=== PATIENT | female | born 1960 | race Caucasian/White ===

== ENCOUNTER 2016-11-06 12:58 | Emergency (ER) | payer MEDICAID ==
--- NOTE | 2016-11-06 13:34 | ED Physician Documentation ---
PD HPI CHEST PAIN - Stated complaint Stated Complaint: CHEST PAIN - Chief complaint Chief Complaint: Cardiac - History obtained from History obtained from: Patient - History of Present Illness Timing - onset: How many weeks ago (1) Timing - onset during: Light activity Timing - duration: Weeks (has had it for a week, regardless of eating, position , breathing, walking/activity.) Quality: Aching, Indigestion (says it feels like burning) Location: Substernal Radiation: No: Left upper extremity, Right upper extremity Improved by: No: Rest, Oxygen, Antacids Worsened by: Eating. No: Exertion, Movement, Palpation Associated symptoms: Shortness of air, Nausea. No: Vomiting, Feeling faint / dizzy, General Weakness, Palpitations Similar symptoms before: Has not had sx before Recently seen: Not recently seen Review of Systems Constitutional: denies: Fever, Chills Nose: denies: Rhinorrhea / runny nose, Congestion Throat: denies: Sore throat Cardiac: reports: Chest pain / pressure. denies: Palpitations, Pedal edema, Calf pain Respiratory: denies: Dyspnea, Cough, Wheezing GI: denies: Nausea, Vomiting, Diarrhea PD PAST MEDICAL HISTORY - Past Medical History Cardiovascular: AL (with left CAD stnent) Respiratory: None Neuro: None Endocrine/Autoimmune: None - Present Medications Home Medications: Ambulatory Orders Medication Instructions Recorded Confirmed Clopidogrel [Plavix] 75 mg PO DAILY 11/06/16 11/06/16 Famotidine [Pepcid] 20 mg PO BID #60 tablet 11/06/16 Glipizide 10 mg PO DAILY #30 tablet 11/06/16 Losartan [Cozaar] 50 mg PO DAILY 11/06/16 11/06/16 Metoprolol Tartrate 50 mg PO BID 11/06/16 11/06/16 Omeprazole [PriLOSEC] 20 mg PO DAILY 11/06/16 11/06/16 Paroxetine HCl 40 mg PO DAILY 11/06/16 11/06/16 Sitagliptin Phosphate [Januvia] 50 mg PO BID 11/06/16 11/06/16 Sucralfate 1 gm PO QID #40 tablet 11/06/16 Tramadol HCl 50 mg PO Q6H PRN #20 tablet 11/06/16 - Allergies Allergies/Adverse Reactions: Allergies Allergy/AdvReac Type Severity Reaction Status Date / Time No Known Drug Allergies Allergy Verified 11/06/16 14:15 PD ED PE NORMAL - Vitals Vital signs reviewed: Yes - General General: Alert and oriented X 3, No acute distress, Well developed/nourished - HEENT HEENT: Ears normal, Moist mucous membranes, Pharynx benign - Neck Neck: Supple, no meningeal sign, No bony TTP, No adenopathy - Cardiac Cardiac: RRR, No murmur - Respiratory Respiratory: Clear bilaterally - Derm Derm: Normal color, Warm and dry, No rash - Extremities Extremities: No deformity, Normal ROM s pain, No edema, No calf tenderness / cord - Neuro Neuro: Alert and oriented X 3, 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, No motor deficit, No sensory deficit, Normal speech - Psych Psych: Normal mood, Normal affect Results - Vitals Vitals: Vital Signs - 24 hr 11/06/16 11/06/16 11/06/16 13:00 13:45 14:15 Heart Rate 157 H 137 H 108 H Respiratory 20 18 16 Rate Blood Pressure 122/87 H 157/114 H 138/81 H O2 Saturation 94 95 95 11/06/16 11/06/16 11/06/16 14:23 15:31 16:15 Heart Rate 109 H 103 H 102 H Respiratory 16 18 16 Rate Blood Pressure 125/70 122/76 104/61 O2 Saturation 95 95 95 11/06/16 16:58 Heart Rate 104 H Respiratory 17 Rate Blood Pressure 115/70 O2 Saturation 95 Oxygen O2 Source Room air - EKG (time done) 13:15 Rate: Rate (enter#) (142) Rhythm: Sinus tachycardia Williams: Normal Intervals: Normal HI Ischemia: Normal ST segments. No: ST elevation c/w ischemia, ST depression - Labs Labs: Laboratory Tests 11/06/16 11/06/16 11/06/16 13:40 13:40 13:40 WBC 14.0 H RBC 5.38 Hgb 15.8 Hct 47.1 H MCV 87.5 MCH 29.4 MCHC 33.6 RDW 12.7 Plt Count 214 MPV 9.0 Neut # 10.7 H Lymph # 2.3 Garrard # 0.8 Eos # 0.1 Baso # 0.1 Absolute Nucleated RBC 0.00 Nucleated RBCs 0.0 D-Dimer < 200.0 L Sodium 133 L Potassium 3.9 Chloride 93 L Carbon Dioxide 25 Anion Gap 15.0 H BUN 13 Creatinine 0.9 Estimated GFR (MDRD) 65 L Glucose 566 H* Calcium 9.4 Total Bilirubin 0.8 AST 32 ALT 44 Alkaline Phosphatase 112 Troponin I B-Natriuretic Peptide Total Protein 7.4 Albumin 4.4 Globulin 3.0 Albumin/Globulin Ratio 1.5 Lipase 43 11/06/16 11/06/16 13:40 13:40 WBC RBC Hgb Hct MCV MCH MCHC RDW Plt Count MPV Neut # Lymph # Garrard # Eos # Baso # Absolute Nucleated RBC Nucleated RBCs D-Dimer Sodium Potassium Chloride Carbon Dioxide Anion Gap BUN Creatinine Estimated GFR (MDRD) Glucose Calcium Total Bilirubin AST ALT Alkaline Phosphatase Troponin I < 0.04 B-Natriuretic Peptide 20 Total Protein Albumin Globulin Albumin/Globulin Ratio Lipase - Rads (name of study) chest Radiology: Prelim report reviewed PD MEDICAL DECISION MAKING - ED course Complexity details: reviewed results (elevated sugars as she has been off her glipizide for 3 weeks. Elevated BP and heart rate as she ran out of metoprolol 2 -3 days ago. Her chest pain improves some with GI cocktail. Will treat as GERD/ esophagitis. Labs are good, so excluding AL, CHF, PE. Her right arm has some numbness in little and ring finger and ulnar side of hand with less sensation, but she has good grasp and color/cap refill. ), considered differential, d/w patient Departure - Departure Disposition: 01 Home, Self Care Clinical Impression: Chest pain at rest, Esophagitis, Neuropraxia of right ulnar nerve, Hyperglycemia, Tachycardia Hypertension Qualifiers: Hypertension type: unspecified secondary hypertension Qualified Code(s): I15.9 - Secondary hypertension, unspecified Condition: Stable Record reviewed to determine appropriate education?: Yes Instructions: Esophagitis, ED Chest Pain NonCardiac Prescriptions: Glipizide 10 mg PO DAILY #30 tablet Famotidine [Pepcid] 20 mg PO BID #60 tablet Sucralfate 1 gm PO QID #40 tablet Tramadol HCl 50 mg PO Q6H PRN #20 tablet PRN Reason: Pain Comments: Continue usual medications. Add Famotidine twice daily and Sucralfate 4 times daily for esophageal irritation. Frequent fluids. Add Tylenol or Tramadol as needed for pains. Follow up PMD when back home. Discharge Date/Time: 11/06/16 16:59
[2016-11-06] MEDS ORDERED: METOPROLOL 5 MG/5 ML VIAL IVP ONE ×2 (13:58→15:16)
[2016-11-06] MEDS: METOPROLOL 5 MG/5 ML VIAL IVP STA ×2 (14:03→15:22)
[2016-11-06 14:18] LABS: BASOPHILS # (AUTO) 0.1 10^3/uL (0.0-0.1); BASOPHILS % (AUTO) 0.7 %; EOSINOPHILS # (AUTO) 0.1 10^3/uL (0.0-0.7); EOSINOPHILS % (AUTO) 0.5 %; HCT - HEMATOCRIT 47.1 % (37.0-47.0); HGB - HEMOGLOBIN 15.8 g/dL (12.0-16.0); LYMPHOCYTES # (AUTO) 2.3 10^3/uL (1.5-3.5); LYMPHOCYTES % (AUTO) 16.6 %; MEAN CORPUSCULAR HEMOGLOBIN 29.4 pg (27.0-31.0); MEAN CORPUSCULAR HGB CONC 33.6 g/dL (32.0-36.0); MEAN CORPUSCULAR VOLUME 87.5 fL (81.0-99.0); MONOCYTES # (AUTO) 0.8 10^3/uL (0.0-1.0); NEUTROPHILS # (AUTO) 10.7 10^3/uL (1.5-6.6); NEUTROPHILS % (AUTO) 76.2 %; RED BLOOD COUNT 5.38 10^6/uL (4.20-5.40); RED CELL DISTRIBUTION WIDTH 12.7 % (12.0-15.0)
[2016-11-06] MEDS ORDERED: LIDOCAINE VISCOUS 2% 15 ML UDC MM ONE (14:19)
[2016-11-06] MEDS ORDERED: MAG HYDROX/AL HYDROX/SIMETH 30 ML UDC ONE (14:19)
[2016-11-06] MEDS: LIDOCAINE VISCOUS 2% 15 ML UDC MM STA (14:22)
[2016-11-06] MEDS: MAG HYDROX/AL HYDROX/SIMETH 30 ML UDC PO STA (14:22)
--- NOTE | 2016-11-06 14:24 | XRAY Preliminary Report ---
Exam: XR Chest 1 View IMPRESSION: Normal single view chest. [facility] SITE ID: [id number]
[2016-11-06 14:29] LABS: ALBUMIN/GLOBULIN RATIO 1.5 (1.0-2.2); BILIRUBIN,TOTAL 0.8 mg/dL (0.2-1.0); CALCIUM 9.4 mg/dL (8.5-10.3); CREATININE 0.9 mg/dL (0.4-1.0); POTASSIUM 3.9 mmol/L (3.5-5.0); TOTAL PROTEIN 7.4 g/dL (6.7-8.2)
--- NOTE | 2016-11-06 14:45 | XRAY Report ---
EXAM: CHEST RADIOGRAPHY EXAM DATE: 11/06/2016 02:18 PM. CLINICAL HISTORY: Chest pressure, tachycardia. COMPARISON: None. TECHNIQUE: 1 view. FINDINGS: Lungs/Pleura: No focal opacities evident. No pleural effusion. No pneumothorax. Mediastinum: Within exam limitations, cardiomediastinal contour is normal. Other: Cholecystectomy. IMPRESSION: Normal single view chest. [facility] Referring Provider Line: [phone] SITE ID: [id number]
[2016-11-06] MEDS ORDERED: INSULIN REGULAR HUMAN 100 UNIT/1 ML 10 ML MDV ONE (15:17)
[2016-11-06] MEDS: INSULIN REGULAR HUMAN 100 UNIT/1 ML 10 ML MDV IVP STA (15:26)
[2016-11-06] MEDS: glipiZIDE 5 MG TABLET PO STA (15:28)
[2016-11-06 16:59] VITALS: BP 115/70
== END 2016-11-06 16:59 | disposition home or self-care (01) ==
LOC: ED 12:58
DX: R07.9 Chest pain, unspecified (principal); K20.9 Esophagitis, unspecified; S54.01XA Injury of ulnar nerve at forearm level, right arm, initial encounter; X58.XXXA Exposure to other specified factors, initial encounter; R73.9 Hyperglycemia, unspecified; R00.0 Tachycardia, unspecified; I10 Essential (primary) hypertension; I25.2 Old myocardial infarction
CPT/HCPCS: 36415; 71010; 80053; 83690; 83880; 84484; 85025; 85379; 93005; 93010; 96374; 96376; 99284